=== PATIENT | male | born 1995 | race Caucasian/White ===

== ENCOUNTER 2025-10-06 15:08 | Emergency (ER) | payer MEDICAID ==
[~2025-10-06] VITALS: Ht 177.8 cm; Wt 125.0 kg
[2025-10-06 15:13] VITALS: O2SAT 99
[2025-10-06 15:16] VITALS: BP 122/74; PULSE 92; RESP 18; TEMP 36.7; O2SAT 99
[2025-10-06] MEDS: ACETAMINOPHEN 325MG TABLET PO ONE (16:53)
[2025-10-06] MEDS: ONDANSETRON 4MG ODT PO ONE (16:53)
[2025-10-06 17:14] LABS: BASOPHILS % 0.4 % (0.0-2.0); EOSINOPHILS % 10.4 % (0.0-5.0); HEMATOCRIT. 42.0 % (42.0-52.0); HEMOGLOBIN. 14.3 g/dL (14.0-18.0); LYMPHOCYTES % 15.8 % (20.0-50.0); MEAN PLATELET VOLUME 9.8 fl (7.4-10.4); MONOCYTES % 6.3 % (2.0-8.0); NEUTROPHILS % 67.1 % (40.0-76.0); PLATELET 219 x1000/uL (130-400); RED BLOOD CELL COUNT 4.98 mill/uL (4.7-6.1); RED CELL DISTRIBUTION WIDTH 13.8 % (11.6-14.6)
[2025-10-06 17:21] LABS: CLARITY URINE CLEAR (CLEAR); COLOR URINE YELLOW (YELLOW); GLUCOSE URINE NEGATIVE (NEGATIVE); KETONES URINE TRACE (NEGATIVE); LEUKOCYTE ESTERASE URINE NEGATIVE (NEGATIVE); NITRITE URINE NEGATIVE (NEGATIVE); OCCULT BLOOD URINE NEGATIVE (NEGATIVE); PH URINE 6.0 (4.5-8.0); PROTEIN URINE NEGATIVE (NEGATIVE); SPECIFIC GRAVITY URINE 1.026 (1.005-1.030); UROBILINOGEN URINE 1.0 E.U./dL (0.2-1.0)
[2025-10-06 17:29] LABS: CREATININE 1.0 mg/dL (0.6-1.3)
[2025-10-06 17:30] LABS: UREA NITROGEN BLOOD 12 mg/dL (9-23)
[2025-10-06 17:31] LABS: ASPARTATE AMINOTRANSFERASE 16 IU/L (<34)
[2025-10-06 17:32] LABS: BILIRUBIN DIRECT 0.3 mg/dL (<=3.0); BILIRUBIN TOTAL 0.9 mg/dL (0.1-1.0); PROTEIN TOTAL 7.1 g/dL (6.0-8.3)
[2025-10-06] MEDS ORDERED: ONDA-239 PO (18:28)
[2025-10-06] MEDS ORDERED: ACET-2708 MT (18:28)
== END 2025-10-06 18:56 | disposition home or self-care (01) ==
LOC: ER 15:08
DX: K29.70 Gastritis, unspecified, without bleeding (principal); R11.2 Nausea with vomiting, unspecified
CPT/HCPCS: 99284; 74176; 80076; 80048; 81003; 83690; 85025; 36415; Q0162